=== PATIENT | female | born 1965 | race Hispanic/Latino ===

== ENCOUNTER 2019-01-26 08:41 | Day surgery (SDC) | payer OTHER ==
[~2019-01-26] VITALS: Ht 154.9 cm; Wt 78.9 kg
[~2019-01-26 08:41] MED LIST: CLOP75TA32 PO; INSU100I21 SQ; LISI2.5T2 PO; METF-444 PO; METO-408 PO; PRAV40TA3 PO; SODIUM CHLORIDE 0.9% 1000ML 1,000 ML IV ONE
[2019-01-26 08:51] VITALS: BP 136/67
[2019-01-26] MEDS ORDERED: PROPOFOL 10 MG/ML 20ML VIAL IV ONE (10:16)
[2019-01-26 10:25] VITALS: BP 95/38
[2019-01-26 10:30] VITALS: BP 99/57
[2019-01-26 10:35] VITALS: BP 105/52
[2019-01-26 10:49] VITALS: BP 121/69
== END 2019-01-26 11:26 | disposition home or self-care (01) ==
LOC: DAH 08:41
PROVIDERS: ATTEND Internal Medicine
DX: Z12.11 Encounter for screening for malignant neoplasm of colon (principal); K57.30 Diverticulosis of large intestine without perforation or abscess without bleeding; I10 Essential (primary) hypertension; E11.9 Type 2 diabetes mellitus without complications; I25.10 Atherosclerotic heart disease of native coronary artery without angina pectoris; E66.9 Obesity, unspecified; Z88.5 Allergy status to narcotic agent; Z68.32 Body mass index [BMI] 32.0-32.9, adult; Z79.4 Long term (current) use of insulin; Z79.899 Other long term (current) drug therapy; Z79.84 Long term (current) use of oral hypoglycemic drugs; Z98.51 Tubal ligation status; Z98.890 Other specified postprocedural states; Z95.5 Presence of coronary angioplasty implant and graft; Z83.3 Family history of diabetes mellitus; Z82.3 Family history of stroke; Z82.49 Family history of ischemic heart disease and other diseases of the circulatory system
CPT/HCPCS: 45378; 82948 ×2; A4606; J2704; J7030